=== PATIENT | male | born 2000 | race Two or more races ===

== ENCOUNTER 2024-09-16 12:48 | Emergency (ER) | payer MEDICAID ==
[~2024-09-16] VITALS: Ht 172.7 cm; Wt 70.3 kg
[2024-09-16 13:03] VITALS: BP 136/62; TEMP 98
[2024-09-16] MEDS ORDERED: NAPR-1009 PO (13:40)
[2024-09-16 13:44] VITALS: O2SAT 98
== END 2024-09-16 13:45 | disposition home or self-care (01) ==
LOC: ER 13:02
DX: S93.601A Unspecified sprain of right foot, initial encounter (principal); X50.1XXA Overexertion from prolonged static or awkward postures, initial encounter; Y93.89 Activity, other specified; Y92.89 Other specified places as the place of occurrence of the external cause; Y99.8 Other external cause status
CPT/HCPCS: 73630-TC